=== PATIENT | female | born 1970 | race Two or more races ===

== ENCOUNTER 2025-01-09 18:38 | Emergency (ER) | payer MEDICAID, SELFPAY ==
[2025-01-09 18:57] VITALS: BP 57/42; PULSE 89; RESP 18; TEMP 36.4; O2SAT 98; BMI 35.2
--- NOTE | 2025-01-09 19:16 | PD.EDALLER ---
ED Allergic Reaction RME/HPI General Chief complaint: Allergic Reaction Stated complaint: ALLERGIC REACTION; RASH, SOB, BLURRY VISION Time Seen by Provider: 01/09/25 19:09 Arrival date/time: 01/09/25 18:38 RME / HPI RME / HPI narrative: Dr. Pascal?s Main ED Evaluation: 54yo female with a history of DM, HTN, HLD presents to the ED for a chief complaint of allergic reaction. Patient was seen by me at 1910. Patient's daughter states she received a call from her sister, stating that the patient ate bread and started having blurry vision, a rash, shortness of breath, and was confused. 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 Patient currently states she feels fatigued. Patient denies any headache, chest pain, vomiting or any other associated symptoms. Related Data Home Medications ?Medication ?Instructions ?Recorded ?Confirmed atorvastatin 80 mg tablet 80 mg PO DAILY 11/10/21 11/10/21 glipizide 10 mg tablet 10 mg PO QDAY 11/10/21 11/10/21 loratadine 10 mg tablet 10 mg PO DAILY 11/10/21 11/10/21 sertraline 25 mg tablet 25 mg PO DAILY 11/10/21 11/11/21 sitagliptin phosphate 50 1 tab PO BID 11/10/21 11/10/21 mg-metformin 500 mg tablet (Dorothy) Previous Rx's ?Medication ?Instructions ?Recorded blood sugar diagnostic (Blood #100 ea 08/10/20 Glucose Test strips) blood-glucose meter (Blood Glucose #1 ea 08/10/20 Monitoring kit) insulin glargine 100 unit/mL (3 60 unit (0.6 mL) subcut QPM #15 mL 08/10/20 mL) subcutaneous pen (Basaglar KwikPen U-100 Insulin) lancets 30 gauge (BD Ultra-Fine II #100 ea 08/10/20 Lancets) pen needle, diabetic 31 gauge x #50 ea 08/10/20 1/ (Lite Touch Insulin Pen Amelia) diphenhydramine HCl 25 mg capsule 25 mg PO TID PRN allergic reaction 01/09/25 (Allergy (diphenhydramine)) #20 caps epinephrine 0.3 mg/0.3 mL 0.3 ml subcut .once #2 ea 01/09/25 injection, auto-injector (EpiPen 2-Malcom) Allergies Allergy/AdvReac Type Severity Reaction Status Date / Time No Known Allergies Allergy Verified 01/09/25 18:40 Review of Systems Review of Systems Systems Reviewed: All systems reviewed, normal except as documented Past Medical History Past Medical History NEUROLOGIC: Positive Neurological Disorders and Migraine; Negative Seizures CARDIAC: Positive Cardiac Disorders, Hypercholesterolemia, Edema, Hypertension and Varicose Veins; Negative Congestive Heart Failure or Cellulitis RESPIRATORY: Positive Pneumonia; Negative Chronic Obstructive Pulmonary Disease (COPD), Asthma, Tuberculosis, Pulmonary Embolism or Sleep Apnea GASTROINTESTINAL: Negative Gastrointestinal Disorders or Hepatitis GENITOURINARY: Negative Genitourinary Disorders or Renal Disease REPRODUCTIVE: Positive Previous Pregnancies; Negative Pelvic Inflammatory Disease MUSCULOSKELETAL: Negative Musculoskeletal Disorders ENDOCRINE: Positive Endocrine Disorders and Diabetes Mellitus Type 2; Negative Diabetes Mellitus Type 1 HEMATOLOGIC: Negative Blood Disorders or Sickle Cell Disease PSYCHO/SOCIAL: Positive Depression and Anxiety OTHER HISTORY: Positive Hospitalization, Chicken Pox and Measles; Negative Autoimmune Disease, Falls, Blood Transfusions, Blood Transfusion Reaction, Anesthesia Reactions, Organ Transplant, Chemotherapy, Radiation Therapy, MRSA, Human Immunodeficiency Virus (HIV), Mumps, Rubella ([place] Measles), Pertussis, Clostridium Difficile or Cancer Family History FAMILY HISTORY: Positive Family Gastrointestinal Problems and Family Surgery; Negative Family Psychiatric Problems, Family Respiratory Disorders, Family Cardiac Disorders, Family Cancer or Family Anesthesia Reaction Surgical History SURGICAL: Positive Tubal Ligation and Section; Negative Cardiac Surgery, Pacemaker, Endocrine Surgery, Thyroidectomy, Ear Surgery, Abdominal Surgery, Nephrectomy, Joint Replacement, Neurologic Surgery, Brain Shunt, Mastectomy or Organ Transplant Social History SMOKING STATUS: Never smoker SUBSTANCE USE: does not use ED Exam Narrative Physical exam: GENERAL APPEARANCE: AxOx4, generally well-appearing, no acute distress. HEENT: NC, AT. MMM. EOMI, clear conjunctiva, oropharynx clear. NECK: Supple without lymphadenopathy. No stiffness or restricted ROM. HEART: Normal rate and regular rhythm, normal S1/S1, no m/r/g LUNGS: CTAB, moving air well. No crackles or wheezes are heard. ABDOMEN: Soft, nontender, nondistended with good bowel sounds heard. BACK: No midline C/T/L spine pain or deformity, No CVAT, no obvious deformity. EXTREMITIES: Without cyanosis, clubbing or edema. MUSCULOSKELETAL: FROM of all major joints, no chest tenderness NEUROLOGICAL: Grossly nonfocal. Alert and oriented, moving all 4 extremities. CN not formally tested but appear grossly intact. Skin: Cold to touch. Diffuse erythema and urticaria, primarily at the face, upper extremities, and torso. Course Course Course Narrative: Initial blood pressure on arrival was 52/47. Patient was immediately placed in a room. Patient first seen at 0. Observation began at 1909 and was necessary in order to determine if the patient will develop any further worsening symptoms or if she will improve after receiving medication(s). 1L NS IVF, Decadron 10mg IV, Epinephrine 0.5mg SC, and Pepcid 40mg IV ordered. 1934: Repeat blood pressure is now 120/76 with a HR of 82. 2221: Patient has significantly improved. Her blood pressure is 124/71 and states her symptoms have subsided. Upon reevaluation, observation revealed that the patient is stable to be discharged home. Observation time ended at 2229. Total time of observation 3 hours 20 minutes. Quality Measures none Orders Category Date Time Status CBC Stat Lab 01/09/25 19:20 Completed CMP [Comprehensive Metabolic Panel] Stat Lab 01/09/25 19:20 Completed Troponin I Stat Lab 01/09/25 19:20 Completed Dexamethasone Inj [Decadron Inj] Med 01/09/25 19:18 Discontinued 10 mg IV X1 ONE EPINEPHrine Inj [Adrenalin Inj] Med 01/09/25 19:16 Discontinued 0.5 mg SC X1 ONE Famotidine Inj [Pepcid Inj] Med 01/09/25 19:18 Discontinued 40 mg IVP X1 ONE Sodium Chloride 0.9% 1000 ml [Ns] 1,000 ml Med 01/09/25 19:17 Discontinued IV 999 mls/hr Vital Signs Vital signs: Vital Signs Temperature 97.6 F 01/09/25 18:57 Pulse Rate 89 01/09/25 18:57 Respiratory Rate 18 01/09/25 18:57 Blood Pressure 57/42 L 01/09/25 18:57 Pulse Oximetry (%) 98 01/09/25 18:57 Oxygen Delivery Method Room Air 01/09/25 18:57 Allergic Reaction MDM Narrative MDM Narrative:: Scribe Attestation: 01/09/25 - Nia Mckeon am scribing for and in the presence of Dr. Pascal. Patient data External records reviewed:: [facility] previous records (Per chart review, patient was seen here on 04/19/24 for dizziness.) Clinical information provided by:: patient and family (daughter) Social determinants that could affect healthcare access:: none Patient has the following chronic illnesses:: DM, HTN, HLD How is presenting disease/condition affected by chronic disease/condition?: uneffected by Evaluation data The following diagnostics were reviewed and interpreted by me:: lab results and EKG tracing(s) Lab and/or radiology exams considered but not ordered:: none Interpretation Summary: WBC count is 14.5, Glucose is 344, Troponin is normal. EKG done at 1906, NSR, rate of 78, normal axis, normal intervals, no acute ST or T wave changes, according to my interpretation. Medications / Prescriptions Medications or Prescriptions considered but not ordered:: none Medication administrations:: Medication Administration History Discontinued Medications Dexamethasone Sodium Phosphate (Dexamethasone Sod Phos Inj 10 Mg/Ml Vial) 10 mg IV X1 ONE Stop: 01/09/25 19:19 Last Admin: 01/09/25 19:32 Dose: 10 mg Documented By: JOSE Epinephrine HCl (Epinephrine Inj 1 Mg/Ml Amp) 0.5 mg SC X1 ONE Stop: 01/09/25 19:17 Last Admin: 01/09/25 19:32 Dose: 0.5 mg Documented By: JOSE Famotidine (Famotidine Inj 10 Mg/Ml Vial 2 Ml) 40 mg IVP X1 ONE Stop: 01/09/25 19:19 Last Admin: 01/09/25 19:32 Dose: 40 mg Documented By: JOSE Sodium Chloride (Ns) 1,000 mls @ 999 mls/hr IV .Q1H1M ONE Stop: 01/09/25 20:17 Last Infusion: 01/09/25 21:14 Dose: Infused Documented By: Admin: 01/09/25 19:31 Dose: 999 mls/hr Documented By: JOSE see above Consultations Consultation(s) initiated? (list below): No Diagnosis Differential Diagnosis allergic reaction: anaphylaxis, allergic reaction and urticaria Most likely diagnosis given after review of the tests above:: see clinical impression below Admission Indicated Admission indicated?: not indicated Admission Request Was there a request for admission?: No Disposition Plan Disposition Plan: Discharge Discharge Attestation Discharge Attestation: The patient and all family members were given an opportunity to ask questions and understood the discharge instructions. Discharge instructions specifically effects, indications for sooner follow up or return to the emergency department, and the expected course of current diagnosis. Patient condition: Stable Critical Care Time Critical Care Time Critical Care Time: Yes Total Critical Care Time (min.): 35 Attestation: The high probability of sudden, clinically significant deterioration in the patient?s condition required the highest level of my preparedness to intervene urgently. The services I provided to this patient were to treat and/or prevent clinically significant deterioration. Services included the following: chart data review, reviewing nursing notes and/or old charts, documentation time, field service consultant collaboration regarding findings and treatment options, medication orders and management, direct patient care, vital sign assessments and ordering, interpreting and reviewing diagnostic studies and lab tests. Aggregate critical care time includes only time during which I was engaged in work directly related to the patient?s care, as described above, whether at bedside or elsewhere in the Emergency Department. It did not include time spent performing other reported procedures or the services of residents, students, nurses or physician assistants. Discharge Plan Plan Patient Disposition: HOME (Self Care) Prescriptions/Referrals Prescriptions/Med Rec: New diphenhydramine HCl [Allergy (diphenhydramine)] 25 mg capsule 25 mg PO TID PRN (Reason: allergic reaction) Qty: 20 0RF epinephrine [EpiPen 2-Malcom] 0.3 mg/0.3 mL auto-injector 0.3 ml subcut .once Qty: 2 0RF No Action (DME) blood-glucose meter [Blood Glucose Monitoring] Kit See Rx Instructions .ROUTE .MEDSUPPLY Qty: 1 0RF Rx Instructions: As directed check BS 3 times a day (DME) Blood Glucose Test Strip See Rx Instructions .ROUTE .MEDSUPPLY Qty: 100 0RF Rx Instructions: As directed check BS 3 times a day Basaglar KwikPen U-100 Insulin 100 unit/mL (3 mL) insulin pen 60 unit subcut QPM Qty: 15 0RF (DME) pen needle, diabetic [Lite Touch Insulin Pen Amelia] 31 gauge x 1/4 needle See Rx Instructions .ROUTE .MEDSUPPLY Qty: 50 0RF Rx Instructions: As directed (DME) lancets [BD Ultra-Fine II Lancets] 30 gauge misc See Rx Instructions .ROUTE .MEDSUPPLY Qty: 100 0RF Rx Instructions: As directed check BS 3 times a day atorvastatin 80 mg Tablet 80 mg PO DAILY glipizide 10 mg Tablet 10 mg PO QDAY sertraline 25 mg tablet 25 mg PO DAILY Patient Comments: TOME KIT TABLETA POR V A ORAL TODOS LOS D loratadine 10 mg tablet 10 mg PO DAILY Patient Comments: TOME KIT TABLETA POR V A ORAL TODOS LOS D Janumet 50-500 mg Tablet 1 tab PO BID Referrals: Ly Sargent WEIGH MACHINE OPERATOR [Primary Care Provider] - In 1 week Problem List Clinical Impression: Anaphylaxis Patient/Caregiver Discharge Instructions Education Materials: ED Anaphylaxis Additional Instructions: Acuda a kit anais de seguimiento con deluca m?dico de cabecera en 2 o 3 d?as para kit nueva evaluaci?n. Puede regresar a urgencias antes si los s?ntomas empeoran o si nota alg?n problema nuevo que le preocupe. Print Language: Citizen Of [place] Stand Alone Forms: [employer] Award Info., Patient Portal Info Letter
[2025-01-09 19:22] VITALS: BP 124/104; PULSE 89; RESP 33; O2SAT 98
[2025-01-09] MEDS: SODIUM CHLORIDE 0.9% 1000 ML 1,000 ML 999 ML IV (19:31)
[2025-01-09 19:32] VITALS: BP 122/62; PULSE 78
[2025-01-09] MEDS: EPINEPHrine INJ 1 MG/ML AMP 0.5 MG SC (19:32)
[2025-01-09] MEDS: DEXAMETHASONE SOD PHOS INJ 10 MG/ML VIAL IV (19:32)
[2025-01-09] MEDS: FAMOTIDINE INJ 10 MG/ML VIAL 2 ML 40 MG IVP (19:32)
[2025-01-09 19:53] LABS: Basophils % (Auto) 0 % (0-2.5); Eosinophils # (Auto) 0.1 Thou/mm3 (0.0-0.5); Eosinophils % (Auto) 1 % (0-10); Hematocrit 41.2 % (36.0-46.0); Hemoglobin 13.7 g/dL (12.0-16.0); Immature Granulocytes % (Auto) 0 % (0-0); Immature Granulocytes Auto 0.06 Thou/mm3 (0.00-0.00); Lymphocytes # (Auto) 3.5 Thou/mm3 (1.0-4.8); Lymphocytes % (Auto) 24 % (10-50); Mean Corpuscular HGB Conc 33.3 g/dl (31.0-37.0); Mean Corpuscular Hemoglobin 28.2 pg (25.0-35.0); Mean Corpuscular Volume 85 fL (80-100); Monocytes # (Auto) 0.6 Thou/mm3 (0.0-0.8); Monocytes % (Auto) 4 % (0-12); Neutrophils # (Auto) 10.2 Thou/mm3 (1.8-7.7); Neutrophils % (Auto) 71 % (37-80); Nucleated Red Blood Cell % 0 /100 WBC (0); Platelet Count 341 Thou/mm3 (140-440); RDW Standard Deviation 38.2 fL (36.4-46.3); Red Blood Count 4.85 Miln/mm3 (4.00-5.20); White Blood Count 14.5 Thou/mm3 (3.6-11.0)
[2025-01-09 20:09] LABS: Alanine Aminotransferase 28 U/L (10-49); Albumin, Serum 3.9 gm/dL (3.5-5.0); Albumin/Globulin Ratio 1.4 (1.2-2.2); Alkaline Phosphatase 76 U/L (46-116); Anion Gap 13 (7-16); Aspartate Amino Transferase 27 U/L (0-34); BUN/Creatinine Ratio 22 Ratio (12-20); Bilirubin,Total 0.7 mg/dL (0.3-1.2); Blood Urea Nitrogen 26 mg/dL (9-23); Calcium (Corrected) 9.1 mg/dL (8.5-10.1); Carbon Dioxide 19.1 mMol/L (20.0-31.0); Chloride 107 mMol/L (98-107); Creatinine (Component) 1.2 mg/dL (0.6-1.3); Estimated Creatinine Clearance 57.9 mL/min (>60); Globulin 2.7 gm/dL (2.3-3.5); Glucose 344 mg/dL (74-106); Osmolality,Calculated 296 (275-295); Potassium 3.7 mMol/L (3.4-5.1); Sodium 139 mMol/L (136-145); Total Protein 6.6 gm/dL (5.7-8.2); eGFR 53 See Note
[2025-01-09 21:26] VITALS: BP 134/58; PULSE 74; RESP 16; TEMP 37.3; O2SAT 99
[2025-01-09 22:30] VITALS: BP 147/97; PULSE 83; RESP 18; TEMP 36.7; O2SAT 99
== END 2025-01-09 22:42 | disposition home or self-care (01) ==
PROVIDERS: Emergency Provider Emergency Medicine; PCP Nurse Practitioner Family
DX: T78.09XA Anaphylactic reaction due to other food products, initial encounter (principal)
CPT/HCPCS: 36415; 80053; 84484; 85025; 96361; 96372; 96374; 96375; 99284; J0171; J1100; J3490; J7030

== ENCOUNTER → 2025-05-06 | Outpatient (CLI) | payer MEDICAID, SELFPAY ==
--- NOTE | 2025-05-06 12:32 | XR_ITS ---
Examination: Foot, right, 3 views Technique: AP, oblique, lateral views foot, 3 views Date and time of exam: May 06, 2025 1256 hours INDICATIONS: Right ankle foot pain after injury 2 days ago. FINDINGS: Acute fractures mid to distal shaft fourth metatarsal including metatarsal neck 2 mm offset at the main fracture site IMPRESSION: Acute fractures fourth metatarsal
--- NOTE | 2025-05-06 12:32 | XR_ITS ---
EXAMINATION: Ankle, right 3 views . Technique: Ankle AP, oblique, lateral 3 views Date and time of exam: May 06, 2025 1256 hours INDICATIONS: Injury to the ankle 2 days ago, ankle pain. FINDINGS: Significant osteopenia Fracture partly visualized fourth metatarsal No ankle dislocation IMPRESSION: Acute fracture fourth metatarsal
== END | disposition home or self-care (01) ==
PROVIDERS: PCP Nurse Practitioner Family; Referring Provider Nurse Practitioner Family; Visit Provider Nurse Practitioner Family
DX: S92.341A Displaced fracture of fourth metatarsal bone, right foot, initial encounter for closed fracture (principal); X58.XXXA Exposure to other specified factors, initial encounter
CPT/HCPCS: 73610; 73630